=== PATIENT | female | born 1955 | race Caucasian/White ===

== ENCOUNTER 2018-06-12 13:34 | Emergency (ER) | payer MEDICARE, MEDICAID ==
[~2018-06-12] VITALS: Ht 157.5 cm; Wt 52.0 kg
[2018-06-12 14:03] VITALS: BP 145/89
[2018-06-12] MEDS ORDERED: ATOR10TA87 PO (14:44)
[2018-06-12] MEDS ORDERED: AMIT100T58 PO (14:44)
[2018-06-12] MEDS ORDERED: METH10TA6 PO (14:44)
== END 2018-06-12 14:56 | disposition home or self-care (01) ==
LOC: ER 13:35
DX: E07.89 Other specified disorders of thyroid (principal); Z76.0 Encounter for issue of repeat prescription; F43.10 Post-traumatic stress disorder, unspecified; F12.90 Cannabis use, unspecified, uncomplicated; Z98.890 Other specified postprocedural states; Z79.899 Other long term (current) drug therapy; Z88.1 Allergy status to other antibiotic agents; Z88.6 Allergy status to analgesic agent
CPT/HCPCS: 99283